=== PATIENT | male | born 1985 | race Caucasian/White ===

== ENCOUNTER 2022-01-12 01:58 | Emergency (ER) | payer SELFPAY ==
[2022-01-12] MEDS ORDERED: Lorazepam 2 MG/ML VIAL ONE ×3 (02:02→16:52)
[2022-01-12] MEDS ORDERED: Haloperidol Lactate 5 MG/ML VIAL ONE ×3 (02:03→16:52)
[2022-01-12] MEDS ORDERED: diphenhydrAMINE 50 MG/ML VIAL ONE ×2 (02:03→16:57)
[2022-01-12] MEDS ORDERED: diphenhydrAMINE 50 MG CAP ONE (02:03)
[2022-01-12] MEDS ORDERED: Ketamine 50 MG/ML (10ML VIAL) ONE (02:19)
[2022-01-12 03:28] LABS: #Basophils 0.1 thou/uL (0.0-0.2); #Eosinphils 0.1 thou/uL (0.0-0.7); #Lymphocytes 3.3 thou/uL (1.20-3.40); #Monocytes 1.1 thou/uL (0.11-0.59); #Neutrophils 11.6 thou/uL (1.40-6.50); %Basophils 0.5 % (0.0-1.0); %Eosinophils 0.4 % (0.0-10.0); %Lymphocytes 20.3 % (21.0-51.0); %Monocytes 6.6 % (0.0-10.0); %Neutrophils 72.2 % (42.0-75.0); Hemoglobin 14.3 g/dL (14.0-18.0); Mean Corpuscular HGB CONC 34.1 g/dL (32.0-36.0); Mean Corpuscular Hemoglobin 29.8 pg (27.0-31.0); Mean Corpuscular Volume 87.2 fL (78.0-98.0); Platelet Count 328 thou/uL (130-400); RBC Distribution Width 12.1 % (11.5-14.5); Red Blood Cell (RBC) Count 4.79 mill/uL (4.70-6.10); White Blood Cell (WBC) Count 16.1 thou/uL (4.8-10.8)
[2022-01-12 03:50] LABS: ALT (SGPT) 38 U/L (8-55); AST (SGOT) 27 U/L (5-34); Acetaminophen Less than 10.0 mcg/mL (10.0-30.0); Albumin 4.1 g/dL (3.5-5.0); Alcohol Less than 10 mg/dL (Less than 10); Alkaline Phosphatase 89 U/L (40-110); Anion Gap 16 mmol/L (10-20); BUN (Urea Nitrogen) 19 mg/dL (8.9-20.6); Bilirubin, Total 0.6 mg/dL (0.2-1.2); Calc. Creatinine Clearance 0 mL/min (70-130); Calcium 9.8 mg/dL (7.8-10.44); Carbon Dioxide 22 mmol/L (22-29); Chloride 104 mmol/L (98-107); Estimated GFR 83; Globulin 2.8 g/dL (2.4-3.5); Glucose 127 mg/dL (70-105); Magnesium 1.9 mg/dL (1.6-2.6); Potassium 3.2 mmol/L (3.5-5.1); Protein, Total 6.9 g/dL (6.0-8.3); Salicylate Less than 8.0 mg/dL (15.0-30.0); Sodium 139 mmol/L (136-145)
[2022-01-12 06:32] LABS: Bacteria/HPF None Seen HPF (None Seen); Bilirubin Negative (Negative); Blood, Urine Negative (Negative); Clarity Clear (Clear); Glucose, Urine (Dipstick) Normal (Negative); Ketone, Urine Trace mg/dL (Negative); Leukocyte Negative Leu/uL (Negative); Nitrite Negative (Negative); Protein, Urine (Dipstick) 100 mg/dL (Neg-Trace); RBC/HPF 0-3 HPF (0-3); Specific Gravity, Urine 1.031 (1.002-1.036); Squamous Epithelial 0-3 HPF (0-3); pH, Urine 5.5 (5.0-9.0)
[2022-01-12 06:37] LABS: Amphetamine Not Detected (NotDetected); Barbiturates Screen Not Detected (NotDetected); Benzodiazepine Screen Not Detected (NotDetected); Cocaine Metabolite Screen Not Detected (NotDetected); Methadone Not Detected (NotDetected); Methamphetamine Not Detected (NotDetected); Opiate Screen Not Detected (NotDetected); Oxycodone Screen Not Detected (NotDetected); Phencyclidine (PCP) Not Detected (NotDetected); THC/Cannabinoid Screen Not Detected (NotDetected); Tricyclic Screen Not Detected (NotDetected)
[2022-01-12] MEDS ORDERED: Lorazepam 1 MG TAB ONE (09:03)
[2022-01-12] MEDS ORDERED: hydrOXYzine Pamoate 25 mg Capsule ONE (14:28)
[2022-01-12] MEDS ORDERED: hydrOXYzine 25 MG TAB ONE (14:28)
[2022-01-12] MEDS ORDERED: risperiDONE 1 MG TAB ONE (14:28)
[2022-01-12 18:26] LABS: SARS-CoV-2 NAA Rapid Test Not Detected (NotDetected)
[2022-01-13] MEDS ORDERED: Nicotine 14 MG PATCH ONE (11:17)
[2022-01-13] MEDS ORDERED: Ziprasidone 20 MG VIAL ONE (11:48)
[2022-01-13] MEDS ORDERED: Ziprasidone 20 MG CAP ONE (11:52)
[2022-01-13] MEDS ORDERED: Lorazepam 1 MG TAB ONE (14:14)
== END 2022-01-14 09:28 ==
LOC: ERS 01:58
DX: F29 Unspecified psychosis not due to a substance or known physiological condition (principal); I10 Essential (primary) hypertension; F17.210 Nicotine dependence, cigarettes, uncomplicated; Z79.899 Other long term (current) drug therapy; Z20.822 Contact with and (suspected) exposure to COVID-19
CPT/HCPCS: 36415; 51701; 80053; 80306; 80307; 81003; 81015; 83735; 85025; 93005; 96372; 96374; J1200; J1630; J2060; J3486; Q0177; U0002

== ENCOUNTER 2022-08-17 02:53 | Emergency (ER) | payer SELFPAY ==
[2022-08-17] MEDS ORDERED: LORazepam 2 MG/ML SYR.(CARPUJECT) ONE (03:10)
== END 2022-08-17 03:58 | disposition home or self-care (01) ==
LOC: ERS 02:53
DX: F41.9 Anxiety disorder, unspecified (principal); I10 Essential (primary) hypertension; F17.210 Nicotine dependence, cigarettes, uncomplicated
CPT/HCPCS: 93005; 96372; J2060

== ENCOUNTER 2022-10-14 16:33 | Emergency (ER) | payer SELFPAY | END 2022-10-14 17:40 | disposition left against medical advice (07) | LOC: ERS 16:33 | DX: Z53.29 Procedure and treatment not carried out because of patient's decision for other reasons (principal) | CPT/HCPCS: 93005 ==

== ENCOUNTER 2023-06-22 15:56 | Emergency (ER) | payer SELFPAY | END 2023-06-22 16:51 | disposition left against medical advice (07) | LOC: ERS 15:56 | DX: Z53.21 Procedure and treatment not carried out due to patient leaving prior to being seen by health care provider (principal) ==

== ENCOUNTER 2024-05-29 21:28 | Emergency (ER) | payer MEDICARE, SELFPAY ==
[2024-05-29] MEDS ORDERED: Ibuprofen 200 MG TAB ONE (22:10)
[2024-05-29] MEDS ORDERED: Acetaminophen 500 MG TAB ONE (22:11)
== END 2024-05-30 00:40 | disposition home or self-care (01) ==
LOC: ERS 21:28
DX: B34.9 Viral infection, unspecified (principal); R11.0 Nausea; I10 Essential (primary) hypertension; F17.290 Nicotine dependence, other tobacco product, uncomplicated; Z79.899 Other long term (current) drug therapy
CPT/HCPCS: 87428; 99283